=== PATIENT | female | born 1950 | race Caucasian/White ===

== ENCOUNTER → 2017-02-14 | Outpatient (CLI) | payer MEDICARE ==
--- NOTE | 2017-02-14 15:32 | XR ---
EXAMINATION TYPE: XR lumbosacral spine min 4V DATE OF EXAM: 02/14/2017 CLINICAL HISTORY: Chronic low back pain TECHNIQUE: Frontal, lateral, and oblique images of the lumbar spine are obtained. COMPARISON: None FINDINGS: There are 5 lumbar type vertebral bodies identified. There is grade 1 anterolisthesis of L 4 on L5. No pars interarticularis defects are seen at this level, therefore this is likely degenerati ve in nature. Intervertebral disc space narrowing is present at L2-L3 with associated endplate sclero sis. Mild facet arthropathy is present at L4-L5 and L5-S1. No radiographic evidence of neuroforaminal narrowing. There is a rotatory dextroscoliotic curvature of the lumbar spine. Transitional vertebrae seen on the right at L5. Vertebral body heights are maintained. The oblique images appear within nor mal limits. The overlying soft tissue appears unremarkable. IMPRESSION: 1. No acute fracture or dislocation is seen in the lumbar spine. 2. Grade 1 anterolisthesis of L4 on L5 without pars interarticularis defects, likely degenerative. 3. Mild multilevel degenerative disc disease most pronounced at L2-L3 and L5-S1 with no radiographic evidence of neuroforaminal stenosis. 4. Rotatory dextroscoliotic curvature of the lumbar spine.
== END ==
LOC: RADXRYALE 14:52
PROVIDERS: ATTEND Physician Assistant Medical
DX: M43.16 Spondylolisthesis, lumbar region (principal); M51.17 Intervertebral disc disorders with radiculopathy, lumbosacral region
CPT/HCPCS: 72110

== ENCOUNTER → 2017-02-22 | Outpatient (CLI) | payer MEDICARE ==
--- NOTE | 2017-02-25 06:52 | MM ---
Reason for exam: screening (asymptomatic). Last mammogram was performed 1 year ago. History: Patient is postmenopausal. Family history of breast cancer in sister at age 68. Stereotactic core biopsy, January 02, 2002. Physical Findings: A clinical breast exam by your physician is recommended on an annual basis and results should be correlated with mammographic findings. MG 3D Screening Mammo W/Cad Bilateral CC and MLO view(s) were taken. Prior study comparison: February 22, 2016, bilateral MG 3d screening mammo w/cad. January 19, 2015, bilateral MG screening mammo w CAD. There are scattered fibroglandular densities. No suspicious abnormality. ASSESSMENT: Negative, BI-RAD 1 RECOMMENDATION: Routine screening mammogram of both breasts in 1 year.
== END | disposition home or self-care (01) ==
LOC: RADMAMWWP 10:02
PROVIDERS: ATTEND Family Medicine
DX: Z12.31 Encounter for screening mammogram for malignant neoplasm of breast (principal)
CPT/HCPCS: 77063; G0202

== ENCOUNTER → 2017-03-26 | Outpatient (CLI) | payer MEDICARE ==
--- NOTE | 2017-03-26 09:34 | MR ---
EXAMINATION TYPE: MR lumbar spine wo con DATE OF EXAM: 03/26/2017 COMPARISON: Radiographs 02/14/2017 HISTORY: 66-year-old female with lumbago, back pain, and right-sided sciatica. TECHNIQUE: Multiplanar, multisequence images of the lumbar spine were acquired. FINDINGS: Vertebral body heights are preserved. Moderate multilevel degenerative disc disease characterized by a variable disc desiccation, disc spac e narrowing, a bulging discs. The greatest degree of disc height loss is present at L1-L2 and L2-L3 with vacuum phenomenon. Additional hypertrophic facet arthropathy throughout especially the mid to lower lumbar spine with li gamentum flavum thickening. There is a component of mild congenital spinal canal stenosis in the mid to lower lumbar spine. In th e mid lumbar spine, AP canal dimension is 1.2 cm and in the lower lumbar spine is 1. One centimeters. There is a grade 1 anterolisthesis at L4-L5. Conus medullaris is normal. Fatty filum incidentally noted. Mild heterogeneity of marrow signal without suspicious bone marrow replacement. At T12-L1, mild disc bulge without canal or foraminal stenosis. At L1-L2, mild diffuse disc bulge with facet arthropathy. There is attenuation of the thecal sac with out significant spinal canal stenosis. Minimal bilateral inferior neuroforaminal narrowing. At L2-L3, there is large diffuse disc bulge is severely crowds the cauda equina nerve roots causing a moderate to severe spinal canal stenosis. Minimal inferior left neuroforaminal narrowing. At L3-L4, there is diffuse disc bulge with congenital canal narrowing, hypertrophic facet arthropathy , ligamentum flavum thickening. There is overall mild spinal canal stenosis with minimal inferior for aminal narrowing on both sides. At L4-L5, there is congenital canal narrowing with hypertrophic facet arthropathy, ligamentum flavum thickening, grade 1 anterolisthesis, and bulging disc. Changes result in a severe spinal canal stenos is with mild right neuroforaminal stenosis. At L5-S1, facet arthropathy and epidural lipomatosis attenuating the thecal sac. No significant neuro foraminal stenosis. Parapelvic cyst suggested in the left kidney. No prevertebral or paravertebral soft tissue abnormalit y seen. IMPRESSION: 1. Moderate degenerative disc disease, greatest in the upper lumbar spine. Additional hypertrophic fa cet arthropathy and ligamentum flavum thickening with a degenerative grade 1 anterolisthesis of L4-L5 . 2. Underlying congenital spinal canal narrowing along with epidural lipomatosis at L5-S1 and below. 3. At L4-L5, change result in a severe spinal canal stenosis. 4. At L2-L3, changes because a moderate to severe spinal canal stenosis markedly crowding of the caud a equina nerve roots. 5. Mild overall spinal canal stenosis at L3-L4.
== END | disposition home or self-care (01) ==
LOC: RADMRIMAIN 07:38
PROVIDERS: ATTEND Physician Assistant Medical
DX: M48.06 Spinal stenosis, lumbar region (principal); M43.16 Spondylolisthesis, lumbar region; M51.36 Other intervertebral disc degeneration, lumbar region; M46.96 Unspecified inflammatory spondylopathy, lumbar region; E88.2 Lipomatosis, not elsewhere classified; Q76.49 Other congenital malformations of spine, not associated with scoliosis
CPT/HCPCS: 72148

== ENCOUNTER → 2018-02-24 | Outpatient (CLI) | payer MEDICARE ==
--- NOTE | 2018-02-26 10:18 | MM ---
Reason for exam: screening (asymptomatic). Last mammogram was performed 1 year ago. History: Patient is postmenopausal. Family history of breast cancer in sister at age 68. Stereotactic core biopsy, January 02, 2002. Physical Findings: A clinical breast exam by your physician is recommended on an annual basis and results should be correlated with mammographic findings. MG 3D Screening Mammo W/Cad Bilateral CC and MLO view(s) were taken. Prior study comparison: February 22, 2017, bilateral MG 3d screening mammo w/cad. February 22, 2016, bilateral MG 3d screening mammo w/cad. There are scattered fibroglandular densities. No significant changes when compared with prior studies. ASSESSMENT: Negative, BI-RAD 1 RECOMMENDATION: Routine screening mammogram of both breasts in 1 year.
== END | disposition home or self-care (01) ==
LOC: RADMAMWWP 12:37
PROVIDERS: ATTEND Family Medicine
DX: Z12.31 Encounter for screening mammogram for malignant neoplasm of breast (principal)
CPT/HCPCS: 77063; 77067

== ENCOUNTER → 2019-03-10 | Outpatient (CLI) | payer MEDICARE ==
--- NOTE | 2019-03-12 09:32 | MM ---
Reason for exam: screening (asymptomatic). Last mammogram was performed 1 year ago. History: Patient is postmenopausal. Family history of breast cancer in sister at age 68. Stereotactic core biopsy, January 02, 2002. Physical Findings: A clinical breast exam by your physician is recommended on an annual basis and results should be correlated with mammographic findings. MG 3D Screening Mammo W/Cad Bilateral CC and MLO view(s) were taken. Prior study comparison: February 24, 2018, bilateral MG 3d screening mammo w/cad. February 22, 2017, bilateral MG 3d screening mammo w/cad. There are scattered fibroglandular densities. No significant changes when compared with prior studies. ASSESSMENT: Negative, BI-RAD 1 RECOMMENDATION: Routine screening mammogram of both breasts in 1 year.
== END ==
LOC: RADMAMWWP 13:41
PROVIDERS: ATTEND Family Medicine
DX: Z12.31 Encounter for screening mammogram for malignant neoplasm of breast (principal)
CPT/HCPCS: 77063; 77067

== ENCOUNTER → 2020-01-11 | Outpatient (CLI) | payer MEDICARE ==
[2020-01-11 17:59] LABS: African American GFR (CKD) >90 (>60 ml/min/1.73 sqM); Blood Urea Nitrogen 25 mg/dL (7-17); Non-African American GFR(CKD) 81 (>60 ml/min/1.73 sqM)
--- NOTE | 2020-01-11 21:44 | CT ---
EXAMINATION TYPE: CT angio chest DATE OF EXAM: 01/11/2020 COMPARISON: NONE at this institution. HISTORY: aneurysm CT DLP: 363.8 mGycm. Automated Exposure Control for Dose Reduction was Utilized. CONTRAST: CTA scan of the thorax is performed with IV Contrast, patient injected with 100 mL of Isovue 370, pul monary embolism protocol. Three-D reconstructed images are created on independent workstation and rev iewed. FINDINGS: LUNGS: Mild to moderate dependent linear atelectasis both lower lungs right greater than left. Ther e is no pleural effusion or pneumothorax seen bilaterally. The tracheobronchial tree is patent. MEDIASTINUM: There is satisfactory enhancement of the central pulmonary artery and its branches. Asce nding aorta measures up to 4.1 cm in diameter axial image 25. No extension into arch or descending ao rta. 4 vessel origin from aortic arch which is normal variant. There are no greater than 1 cm noncalc ified hilar or mediastinal lymph nodes. Prominent but calcified right paratracheal and right hilar al catalino with subcarinal lymph nodes are seen. No cardiomegaly or pericardial effusion is seen. There is 2.2 cm heterogeneous low dense lower pole right thyroid nodule coronal image 42. OTHER: Visualized liver is low dense suggesting fatty infiltration. Scattered punctate calculations t hroughout the spleen. Spleen and calcified thoracic lymph nodes findings consistent with product of o ld granulomatous disease. Slight scoliotic curvature with straightening of the thoracic spine and mil d to moderate multilevel anterior and lateral spurring. IMPRESSION: 1. There is 4.1 cm ascending aortic aneurysm. 2. There is 2.2 cm lower pole right thyroid nodule. If this is not known finding follow-up thyroid ul trasound is advised to better evaluate and characterize.
== END | disposition home or self-care (01) ==
LOC: RADCTMAIN 17:21
PROVIDERS: ATTEND Internal Medicine Cardiovascular Disease
DX: I71.2 Thoracic aortic aneurysm, without rupture (principal); E04.1 Nontoxic single thyroid nodule; Z88.6 Allergy status to analgesic agent
CPT/HCPCS: 82565; 84520; 71275; 36415; Q9967

== ENCOUNTER → 2020-05-10 | Outpatient (CLI) | payer MEDICARE ==
--- NOTE | 2020-05-11 13:57 | MM ---
Reason for exam: screening (asymptomatic). Last mammogram was performed 1 year and 2 months ago. History: Patient is postmenopausal. Family history of breast cancer in sister at age 68. Stereotactic core biopsy, January 02, 2002. Physical Findings: A clinical breast exam by your physician is recommended on an annual basis and results should be correlated with mammographic findings. MG 3D Screening Mammo W/Cad Bilateral CC and MLO view(s) were taken. Prior study comparison: March 10, 2019, bilateral MG 3d screening mammo w/cad. February 24, 2018, bilateral MG 3d screening mammo w/cad. There are scattered fibroglandular densities. Lateral posterior asymmetric density left CC view is more defined. Densities at a middle depth just anteriorly are slightly more defined as well. ASSESSMENT: Incomplete: need additional imaging evaluation, BI-RAD 0 RECOMMENDATION: Special view mammogram of the left breast. (3D) If lesion persists on supplemental views, image directed ultrasound is recommended. [facility] will attempt to contact patient to return for supplemental views and ultrasound if indicated.
--- NOTE | 2020-05-12 05:48 | BD ---
EXAMINATION TYPE: Axial Bone Density DATE OF EXAM: 05/10/2020 COMPARISON: 05/09/2001 CLINICAL HISTORY: Postmenopausal screening Height: 4 FT 11 3/4 IN Weight: 178 FRAX RISK QUESTIONS: Alcohol (3 or more units per day): NO Family History (Parent hip fracture): NO Glucocorticoids (More than 3mos): NO (Ex: prednisone, prednisolone, methylprednisolone, dexamethasone, and hydrocortisone). History of Fracture in Adulthood: NO Secondary Osteoporosis: 1. Type 1 Diabetes: NO 2. Hyperthyroidism: NO 3. Menopause before 45: NO 4. Malnutrition: NO 5. Chronic liver disease: NO Rheumatoid Arthritis: NO Current Tobacco Use: NO RISK FACTORS HISTORY OF: Family History of Osteoporosis: NO Active: YES Diet low in dairy products/other sources of calcium: NO Postmenopausal woman: AGE 50 Take estrogen and/or progesterone medications: NONE Lost more than 2 inches in height since high school: NO MEDICATIONS: Thyroid Medications: YES Which medication: LEVOTHYROXINE How Long: SEVERAL YEARS Additional Medications: BLOOD PRESSURE ,CHOLESTEROL MEDS, HEART MEDS , LEVOTHYROXINE, AMBIEN Additional History: EXAM MEASUREMENTS: Bone mineral densitometry was performed using the [employer] System. Bone mineral density as measured about the Lumbar spine is: ----- L1-L4(G/cm2): 1.262 T Score Values are as follows: ----- L2: 0.9 ----- L3: 0.9 ----- L4: 1.0 ----- L1-L4: 0.7 Bone mineral density has: INCREASED 10.3 % since study of: 2000 Bone mineral density about the R hip (g/cm2): 0.870 Bone mineral density about the L hip (g/cm2): 0.806 T Score values are as follows: -----R Neck: -1.2 -----L Neck: -1.7 -----R Total: -0.7 -----L Total: -0.6 Bone mineral density has: DECREASED -7.8 % since study of: 2000 IMPRESSION: Osteopenia (T Score between -2.5 and -1). There is slightly increased risk of fracture and the patient may be considered for treatment. Re-Screen 2-5 years. NOTE: T-SCORE=SD OF THE YOUNG ADULT MEAN.
== END | disposition home or self-care (01) ==
LOC: RADMAMWWP 15:52
PROVIDERS: ATTEND Family Medicine
DX: Z12.31 Encounter for screening mammogram for malignant neoplasm of breast (principal); M85.88 Other specified disorders of bone density and structure, other site
CPT/HCPCS: 77063; 77067; 77080

== ENCOUNTER → 2020-05-13 | Outpatient (CLI) | payer MEDICARE ==
--- NOTE | 2020-05-13 11:29 | MM ---
Reason for exam: additional evaluation requested from abnormal screening. Last mammogram was performed less than 1 month ago. History: Patient is postmenopausal. Family history of breast cancer in sister at age 68. Stereotactic core biopsy, January 02, 2002. Physical Findings: Nurse did not find any significant physical abnormalities on exam. MG 3D Work Up W/Cad LT Spot compression CC, spot compression MLO, and ML view(s) were taken of the left breast. Prior study comparison: May 10, 2020, bilateral MG 3d screening mammo w/cad. March 10, 2019, bilateral MG 3d screening mammo w/cad. There are scattered fibroglandular densities. Subtle 5mm circumscribed nodularity 2 o'clock middle depth. The areas improve with spot compression. These results were verbally communicated with the patient and result sheet given to the patient on 05/13/20. ASSESSMENT: Incomplete: need additional imaging evaluation, BI-RAD 0 RECOMMENDATION: Ultrasound of the left breast. (2:00)
--- NOTE | 2020-05-13 11:33 | USB ---
Reason for exam: additional evaluation requested from abnormal screening. History: Patient is postmenopausal. Family history of breast cancer in sister at age 68. Stereotactic core biopsy, January 02, 2002. US Breast Workup Limited LT Left limited breast ultrasound including focal area of concern, retroareolar and axilla demonstrates a 0.5 x 0.4 x 0.4cm oval, cystic lesion at 2 o'clock. Scanned 12-3 o'clock. Precautionary 6 month follow up mammogram recommended. Ductal ectasia noted. These results were verbally communicated with the patient and result sheet given to the patient on 05/13/20. ASSESSMENT: Probably benign, BI-RAD 3 RECOMMENDATION: Follow-up diagnostic mammogram of the left breast in 6 months.
== END | disposition home or self-care (01) ==
LOC: RADMAMWWP 09:43
PROVIDERS: ATTEND Family Medicine
DX: R92.8 Other abnormal and inconclusive findings on diagnostic imaging of breast (principal)
CPT/HCPCS: 77065; 76642; G0279; 77061

== ENCOUNTER → 2020-11-24 | Outpatient (CLI) | payer MEDICARE ==
--- NOTE | 2020-11-24 12:19 | MM ---
Reason for exam: follow-up at short interval from prior study. Last mammogram was performed 6 months ago. History: Patient is postmenopausal. Family history of breast cancer in sister at age 68. Stereotactic core biopsy, January 02, 2002. Physical Findings: Nurse did not find any significant physical abnormalities on exam. MG 3D Diag Mammo W/Cad LT CC and MLO view(s) were taken of the left breast. Prior study comparison: May 13, 2020, left breast MG 3d work up w/cad LT. May 10, 2020, bilateral MG 3d screening mammo w/cad. The breast tissue is heterogeneously dense. This may lower the sensitivity of mammography. Stable nodularity left upper outer quadrant most likely benign asymmetry/overlap breast tissue. These results were verbally communicated with the patient and result sheet given to the patient on 11/24/20. ASSESSMENT: Probably benign, BI-RAD 3 RECOMMENDATION: Follow-up diagnostic mammogram of both breasts in 6 months. Back on schedule.
== END | disposition home or self-care (01) ==
LOC: RADMAMWWP 10:58
PROVIDERS: ATTEND Family Medicine
DX: N63.21 Unspecified lump in the left breast, upper outer quadrant (principal); Z78.0 Asymptomatic menopausal state; Z80.3 Family history of malignant neoplasm of breast
CPT/HCPCS: 77065; G0279; 77061

== ENCOUNTER → 2021-01-20 | Outpatient (CLI) | payer MEDICARE ==
--- NOTE | 2021-01-20 17:13 | XR ---
EXAMINATION TYPE: XR knee complete LT DATE OF EXAM: 01/20/2021 COMPARISON: None HISTORY: Left knee pain TECHNIQUE: 3 view left knee FINDINGS: Small joint effusion may be present. Joint space along the medial compartment may be narrow ed. Remaining joint spaces are preserved. No acute fractures or dislocations are evident. IMPRESSION: 1. Suggestion of a small joint effusion. MRI could further evaluate this finding. 2. Mild degenerative changes medial compartment left knee.
== END | disposition home or self-care (01) ==
LOC: RADXRYALE 11:18
PROVIDERS: ATTEND Family Medicine
DX: M17.12 Unilateral primary osteoarthritis, left knee (principal)

== ENCOUNTER → 2021-06-07 | Outpatient (CLI) | payer MEDICARE ==
--- NOTE | 2021-06-08 10:18 | MM ---
Reason for exam: follow-up at short interval from prior study. Last mammogram was performed 6 months ago. History: Patient is postmenopausal. Family history of breast cancer in sister at age 68. Physical Findings: Nurse did not find any significant physical abnormalities on exam. MG 3D Diag Mammo W/Cad JOSIE Bilateral CC and MLO view(s) were taken. Prior study comparison: November 24, 2020, left breast MG 3d diag mammo w/cad LT. May 13, 2020, left breast MG 3d work up w/cad LT. There are scattered fibroglandular densities. No significant new findings when compared with previous films. These results were verbally communicated with the patient and result sheet given to the patient on 06/07/21. ASSESSMENT: Benign, BI-RAD 2 RECOMMENDATION: Routine screening mammogram of both breasts in 1 year.
== END | disposition home or self-care (01) ==
LOC: RADMAMWWP 14:06
PROVIDERS: ATTEND Family Medicine
DX: R92.8 Other abnormal and inconclusive findings on diagnostic imaging of breast (principal); Z80.3 Family history of malignant neoplasm of breast; Z78.0 Asymptomatic menopausal state
CPT/HCPCS: 77066; G0279; 77062

== ENCOUNTER → 2021-06-15 | Day surgery (SDC) | payer MEDICARE ==
[~2021-06-15] MED LIST: LIDOCAINE 1% INJ 10MG/ML (20 ML MDV) ONE; LIDOCAINE 1% INJ 10MG/ML (20 ML MDV) SQ ONE; MIDAZOLAM 2 MG/2 ML VIAL IV ONE; SODIUM CHLORIDE 0.9% 1,000 ML IV SCH
[2021-06-15 10:28] VITALS: RESP 18; TEMP 98.1
[2021-06-15 13:56] VITALS: BP 134/63; PULSE 68
--- NOTE | 2021-06-15 18:28 | P.EPPROC ---
- EP Procedure Note Electrophysiology Procedure Note: Loop monitor implant Primary physicians: Software Engineer Mobile: Dr. Villa Indication: Recurrent atrial tachycardia, rule out atrial fibrillation Patient was brought to the EP lab in a fasting state. Written informed consent was obtained prior to the procedure. The left pectoral area was prepped and draped per protocol. Intravenous antibiotic was administered preoperatively. A subcutaneous Loop monitor was implanted successfully and the wound was closed per protocol. The device was programmed to detect significant mirna- arrhythmic and tachy-arrhythmic events, per protocol. Device and programming details: A. fib detection protocol Patient underwent EP procedure under conscious sedation/moderate sedation, monitoring of the level of consciousness and physiologic parameters including but not limited to vital signs and oxygenation. Patient tolerated the procedure well without any acute complications. Start time: 1212 Stop time: 1220
== END ==
LOC: CATHEP 09:47
PROVIDERS: ATTEND Internal Medicine Clinical Cardiac Electrophysiology
DX: I47.1 Supraventricular tachycardia (principal); R55 Syncope and collapse; I77.819 Aortic ectasia, unspecified site; I49.5 Sick sinus syndrome; I10 Essential (primary) hypertension; Z20.822 Contact with and (suspected) exposure to COVID-19; E03.9 Hypothyroidism, unspecified; I50.1 Left ventricular failure, unspecified; I71.2 Thoracic aortic aneurysm, without rupture; E78.5 Hyperlipidemia, unspecified; Z82.49 Family history of ischemic heart disease and other diseases of the circulatory system; Z79.890 Hormone replacement therapy; Z79.82 Long term (current) use of aspirin; Z79.899 Other long term (current) drug therapy; Z88.6 Allergy status to analgesic agent; Z88.5 Allergy status to narcotic agent
CPT/HCPCS: 33285; 87635; C1764; J2250; J0690; J2001

== ENCOUNTER → 2022-06-08 | Outpatient (CLI) | payer MEDICARE ==
--- NOTE | 2022-06-11 08:20 | MM ---
Reason for Exam: Screening (asymptomatic). Last screening mammogram was performed 12 month(s) ago. Patient History: Menarche at age 11. First Full-Term at age 17. Postmenopausal. Sister had breast cancer, age 68. Risk Values: Elizabeth 5 year model risk: 3.6%. NCI Lifetime model risk: 9.6%. Prior Study Comparison: 05/13/2020 Left Diagnostic Mammogram, [facility]. 11/24/2020 Left Diagnostic Mammogram, [facility]. 06/07/2021 Bilateral Diagnostic Mammogram, [facility]. Tissue Density: The breast tissue is heterogeneously dense. This may lower the sensitivity of mammography. Findings: Analyzed By CAD. There is no suspicious group of microcalcifications or new suspicious mass in either breast. Overall Assessment: Benign, BI-RAD 2 Management: Screening Mammogram of both breasts in 1 year. A clinical breast exam by your physician is recommended on an annual basis and results should be correlated with mammographic findings. Electronically signed and approved by: Ulysses Portillo M.D. Radiologis
== END | disposition home or self-care (01) ==
LOC: RADMAMWWP 15:00
PROVIDERS: ATTEND Family Medicine
DX: Z12.31 Encounter for screening mammogram for malignant neoplasm of breast (principal); Z78.0 Asymptomatic menopausal state; Z80.3 Family history of malignant neoplasm of breast
CPT/HCPCS: 77063; 77067

== ENCOUNTER → 2023-06-10 | Outpatient (CLI) | payer MEDICARE ==
--- NOTE | 2023-06-11 16:42 | MM ---
Reason for Exam: Screening (asymptomatic). Last screening mammogram was performed 12 month(s) ago. Patient History: Menarche at age 11. First Full-Term at age 17. Postmenopausal. Sister had breast cancer, age 68. Risk Values: Elizabeth 5 year model risk: 3.6%. NCI Lifetime model risk: 9.2%. Prior Study Comparison: 11/24/2020 Left Diagnostic Mammogram, [facility]. 06/07/2021 Bilateral Diagnostic Mammogram, [facility]. 06/08/2022 Bilateral MG 3D screening mammo w/cad, [facility]. Tissue Density: There are scattered fibroglandular densities. Findings: Analyzed By CAD. Pattern appears symmetrical and stable. Benign vascular calcifications within the left breast. Electronic device is within the left breast. No suspicious groups of microcalcifications, spiculated or lobular masses, architectural distortion or other secondary signs of malignancy are mammographically apparent. Overall Assessment: Benign, BI-RAD 2 Management: Screening Mammogram of both breasts in 1 year. A negative mammogram report should not preclude additional follow up of suspicious palpable abnormalities. Patient should continue monthly self breast exam. A clinical breast exam by your physician is recommended on an annual basis and results should be correlated with mammographic findings. Electronically signed and approved by: Ruslan Kohler D.O. Radiologis
== END | disposition home or self-care (01) ==
LOC: RADMAMWWP 10:52
PROVIDERS: ATTEND Family Medicine
DX: Z12.31 Encounter for screening mammogram for malignant neoplasm of breast (principal); Z78.0 Asymptomatic menopausal state; Z80.3 Family history of malignant neoplasm of breast
CPT/HCPCS: 77063; 77067

== ENCOUNTER 2023-12-28 17:29 | Observation (INO) | payer MEDICARE ==
--- NOTE | 2023-12-28 18:11 | ED ---
General Adult HPI - General Chief complaint: Arrhythmia/Palpitations Stated complaint: poss heart problems Time Seen by Provider: 12/28/23 17:40 Source: patient Mode of arrival: ambulatory Limitations: no limitations - History of Present Illness Initial comments: Dictation was produced using [employer] dictation software. please excuse any grammatical, word or spelling errors. Chief Complaint: 73-year-old female presents emergency department for chest pr essure palpitations History of Present Illness: Patient is a 73-year-old female states that she has a pressure in her chest. She denies that it feels like pain. She has no known history of coronary artery disease. Patient has history of leaky valve, ascending aneurysm. She has an implanted loop recorder. 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 Patient states that feels like a vibration in her chest. Not associate with diaphoresis or nausea. Patient states she has had a catheter for with no known history of coronary artery disease. The ROS documented in this emergency department record has been reviewed and confirmed by me. Those systems with pertinent positive or negative responses have been documented in the HPI. All other systems are other negative and/or noncontributory. - Related Data Home Medications Medication Instructions Recorded Confirmed Aspirin 81 mg PO DAILY 06/15/21 06/15/21 Atorvastatin [Lipitor] 40 mg PO DAILY 06/15/21 06/15/21 Fenofibrate Nanocrystallized 145 mg PO DAILY 06/15/21 06/15/21 [Fenofibrate] Ibandronate Sodium [Boniva] 150 mg PO QMONTHLY 06/15/21 06/15/21 Latanoprost/Pf [Latanoprost 0.005% 1 drop BOTH EYES HS 06/15/21 06/15/21 Eye Drop] Levothyroxine Sodium [Levo-T] 50 mcg PO DAILY 06/15/21 06/15/21 Valsartan/Hydrochlorothiazide 1 each PO DAILY 06/15/21 06/15/21 [Valsartan-Hctz 160-12.5 mg Tab] Zolpidem [Ambien] 5 mg PO HS PRN 06/15/21 06/15/21 amLODIPine [Norvasc] 5 mg PO DAILY 06/15/21 06/15/21 Allergies Allergy/AdvReac Type Severity Reaction Status Date / Time acetaminophen AdvReac Unknown Verified 12/28/23 17:39 [From Darvocet-N] propoxyphene AdvReac Unknown Verified 12/28/23 17:39 [From Darvocet-N] Review of Systems ROS Statement: Those systems with pertinent positive or pertinent negative responses have been documented in the HPI. ROS Other: All systems not noted in ROS Statement are negative. Past Medical History Past Medical History: Hypertension, Thyroid Disorder Additional Past Medical History / Comment(s): Ascending Aneurysm. Leaking valve History of Any Multi-Drug Resistant Organisms: None Reported Past Surgical History: No Surgical Hx Reported Past Psychological History: No Psychological Hx Reported Smoking Status: Never smoker Past Alcohol Use History: None Reported Past Drug Use History: None Reported General Exam - General Exam Comments Initial Comments: PHYSICAL EXAM: General Impression: Alert and oriented x3, not in acute distress HEENT: Normocephalic atraumatic, extra-ocular movements intact, pupils equal and reactive to light bilaterally, mucous membranes moist. Cardiovascular: Heart regular rate and rhythm Chest: Able to complete full sentences, no retractions, no tachypnea Abdomen: abdomen soft, non-tender, non-distended, no organomegaly Musculoskeletal: Pulses present and equal in all extremities, no peripheral edema Motor: no focal deficits noted Neurological: CN II-XII grossly intact, no focal motor or sensory deficits noted Skin: Intact with no visualized rashes Psych: Normal affect and mood Limitations: no limitations Course Vital Signs 12/28/23 12/28/23 17:34 18:38 Temperature 98.2 F Pulse Rate 67 60 Respiratory 20 17 Rate Blood Pressure 129/77 127/77 O2 Sat by Pulse 97 98 Oximetry EKG Findings - EKG Comments: EKG Findings:: My EKG interpretation: Ventricular rate 65, sinus rhythm,. 174, cures 96, QTc 431. No LA prolongation, no QTC prolongation, no ST or T-wave changes noted. Overall, this EKG is unremarkable Medical Decision Making - Medical Decision Making Was pt. sent in by a medical professional or institution (, PA, BRAND LEAD, urgent care, hospital, or custodial...) When possible be specific @ -No Did you speak to anyone other than the patient for history (EMS, parent, family, police, friend...)? What history was obtained from this source @ -No Did you review nursing and triage notes (agree or disagree)? Why? @ -I reviewed and agree with nursing and triage notes Were old charts reviewed (outside hosp., previous admission, EMS record, old EKG, old radiological studies, urgent care reports/EKG's, custodial records)? Report findings @ -No old charts were reviewed Differential Diagnosis (chest pain, altered mental status, abdominal pain women, abdominal pain men, vaginal bleeding, musculoskeletal, weakness, fever, dyspnea, syncope, headache, dizziness, GI bleed, back pain, seizure, CVA, palpatations, mental health)? @ -Differential Chest Pain: Stable Angina, Unstable Angina, STEMI, NSTEMI Aortic Dissection, Pneumothorax, Musculoskeletal, Esophageal Spasm GERD, Cholecystitis, Pancreatitis, Zoster, this is not meant to be an all-inclusive list. EKG interpreted by me (3pts min.). @ -See above X-rays interpreted by me (1pt min.). @ -X-ray shows no acute processes CT interpreted by me (1pt min.). @ -None done U/S interpreted by me (1pt. min.). @ -None done What testing was considered but not performed or refused? (CT, X-rays, U/S, l abs)? Why? @ -None What meds were considered but not given or refused? Why? @ -None Was smoking cessation discussed for >3mins.? @ -No Were there social determinants of health that impacted care today? How? (Homelessness, low income, unemployed, alcoholism, drug addiction, transportation, low edu. Level, literacy, decrease access to med. care, correction, rehab)? @ -No Was there de-escalation of care discussed even if they declined (Discuss DNR or withdrawal of care, Hospice)? DNR status @ -No What co-morbidities impacted this encounter? (DM, HTN, Smoking, COPD, CAD, Cancer, CVA, ARF, Chemo, Hep., AIDS, mental health diagnosis, sleep apnea, morbid obesity)? @ -None Was patient admitted / discharged? Hospital course, mention meds given and route, prescriptions, significant lab abnormalities, going to OR and other pertinent info. @ -73-year-old female presents emergency department with chest pressure and palpitations. Vital signs upon arrival are within acceptable limits. Patient denies any symptoms at the bedside. Laboratory evaluation obtained. CBC, coag panel metabolic panel is unremarkable. Troponin is negative. Patient is high risk. She has moderate heart score. Patient will be admitted to observation with consultation cardiology. Patient given aspirin. Did you discuss the management of the patient with other professionals (professionals i.e. , PA, BRAND LEAD, lab, RT, psych nurse, social security specialist, production expert, teacher, immigration services officer, immigration case worker)? Give summary @ -Discussed with hospitalist for admission Was critical care preformed (if so, how long)? @ -No Undiagnosed new problem with uncertain prognosis? @ -No Drug Therapy requiring intensive monitoring for toxicity (Heparin, Nitro, Insulin, Cardizem)? @ -No Were any procedures done? @ -No Diagnosis/symptom? Acute, or Chronic, or Acute on Chronic? Uncomplicated (without systemic symptoms) or Complicated (systemic symptoms)? @ -Chest pain Side effects of treatment? @ -No Exacerbation, Progression, or Severe Exacerbation? @ -No Poses a threat to life or bodily function? How? (Chest pain, [place], [place], pneumonia, PE, COPD, DKA, ARF, appy, cholecystitis, CVA, Diverticulitis, Homicidal, Suicidal, threat to staff... and all critical care pts) @ -Yes - Lab Data Result diagrams: 12/28/23 18:21 12/28/23 18:21 Lab Results 12/28/23 12/28/23 12/28/23 Range/Units 18:21 18:21 18:21 WBC 7.1 (3.8-10.6) k/uL RBC 4.32 (3.80-5.40) m/uL Hgb 13.2 (11.4-16.0) gm/dL Hct 39.1 (34.0-46.0) % MCV 90.5 (80.0-100.0) fL MCH 30.6 (25.0-35.0) pg MCHC 33.8 (31.0-37.0) g/dL RDW 12.8 (11.5-15.5) % Plt Count 204 (150-450) k/uL MPV 8.6 Neutrophils % 66 % Lymphocytes % 21 % Monocytes % 8 % Eosinophils % 3 % Basophils % 1 % Neutrophils # 4.7 (1.3-7.7) k/uL Lymphocytes # 1.5 (1.0-4.8) k/uL Monocytes # 0.6 (0-1.0) k/uL Eosinophils # 0.2 (0-0.7) k/uL Basophils # 0.1 (0-0.2) k/uL PT 11.8 (10.0-12.5) sec INR 1.1 (<1.2) APTT 22.4 (22.0-30.0) sec Sodium 139 (137-145) mmol/L Potassium 3.5 (3.5-5.1) mmol/L Chloride 107 (98-107) mmol/L Carbon Dioxide 24 (22-30) mmol/L Anion Gap 8 mmol/L BUN 19 H (7-17) mg/dL Creatinine 0.79 (0.52-1.04) mg/dL Est GFR (CKD-EPI)AfAm 87 (>60 ml/min/1.73 sqM) Est GFR (CKD-EPI)NonAf 75 (>60 ml/min/1.73 sqM) Glucose 112 H (74-99) mg/dL Calcium 9.5 (8.4-10.2) mg/dL Magnesium 1.6 (1.6-2.3) mg/dL Total Bilirubin 0.4 (0.2-1.3) mg/dL AST 28 (14-36) U/L ALT 20 (4-34) U/L Alkaline Phosphatase 53 (38-126) U/L Troponin I (0.000-0.034) ng/mL Total Protein 6.5 (6.3-8.2) g/dL Albumin 3.9 (3.5-5.0) g/dL TSH 2.660 (0.465-4.680) mIU/L 12/28/23 Range/Units 18:21 WBC (3.8-10.6) k/uL RBC (3.80-5.40) m/uL Hgb (11.4-16.0) gm/dL Hct (34.0-46.0) % MCV (80.0-100.0) fL MCH (25.0-35.0) pg MCHC (31.0-37.0) g/dL RDW (11.5-15.5) % Plt Count (150-450) k/uL MPV Neutrophils % % Lymphocytes % % Monocytes % % Eosinophils % % Basophils % % Neutrophils # (1.3-7.7) k/uL Lymphocytes # (1.0-4.8) k/uL Monocytes # (0-1.0) k/uL Eosinophils # (0-0.7) k/uL Basophils # (0-0.2) k/uL PT (10.0-12.5) sec INR (<1.2) APTT (22.0-30.0) sec Sodium (137-145) mmol/L Potassium (3.5-5.1) mmol/L Chloride (98-107) mmol/L Carbon Dioxide (22-30) mmol/L Anion Gap mmol/L BUN (7-17) mg/dL Creatinine (0.52-1.04) mg/dL Est GFR (CKD-EPI)AfAm (>60 ml/min/1.73 sqM) Est GFR (CKD-EPI)NonAf (>60 ml/min/1.73 sqM) Glucose (74-99) mg/dL Calcium (8.4-10.2) mg/dL Magnesium (1.6-2.3) mg/dL Total Bilirubin (0.2-1.3) mg/dL AST (14-36) U/L ALT (4-34) U/L Alkaline Phosphatase (38-126) U/L Troponin I <0.012 (0.000-0.034) ng/mL Total Protein (6.3-8.2) g/dL Albumin (3.5-5.0) g/dL TSH (0.465-4.680) mIU/L Disposition Clinical Impression: Chest pain Disposition: ADMITTED IP TO THIS [facility] Condition: Fair Referrals: Rogelio Valentin DO [Primary Care Provider] - 1-2 days Decision Time: 19:22
[2023-12-28 18:31] LABS: Basophils # (A) 0.1 k/uL (0-0.2); Basophils % (A) 1 %; Eosinophils # (A) 0.2 k/uL (0-0.7); Eosinophils % (A) 3 %; HCT 39.1 % (34.0-46.0); HGB 13.2 gm/dL (11.4-16.0); Lymphocytes # (A) 1.5 k/uL (1.0-4.8); Lymphocytes % (A) 21 %; MCH 30.6 pg (25.0-35.0); MCHC 33.8 g/dL (31.0-37.0); MCV 90.5 fL (80.0-100.0); Mean Platelet Volume 8.6; Monocytes # (A) 0.6 k/uL (0-1.0); Monocytes % (A) 8 %; Neutrophils # (A) 4.7 k/uL (1.3-7.7); Neutrophils % (A) 66 %; Platelet Count 204 k/uL (150-450); RBC 4.32 m/uL (3.80-5.40); RDW 12.8 % (11.5-15.5); WBC 7.1 k/uL (3.8-10.6)
[2023-12-28 18:44] LABS: ALT 20 U/L (4-34); AST 28 U/L (14-36); African American GFR (CKD) 87 (>60 ml/min/1.73 sqM); Albumin 3.9 g/dL (3.5-5.0); Alkaline Phosphatase 53 U/L (38-126); Anion Gap 8 mmol/L; Blood Urea Nitrogen 19 mg/dL (7-17); Calcium 9.5 mg/dL (8.4-10.2); Carbon Dioxide 24 mmol/L (22-30); Chloride 107 mmol/L (98-107); Glucose 112 mg/dL (74-99); Magnesium 1.6 mg/dL (1.6-2.3); Non-African American GFR(CKD) 75 (>60 ml/min/1.73 sqM); Potassium 3.5 mmol/L (3.5-5.1); Sodium 139 mmol/L (137-145); Total Bilirubin 0.4 mg/dL (0.2-1.3); Total Protein 6.5 g/dL (6.3-8.2)
--- NOTE | 2023-12-28 18:56 | XR ---
EXAMINATION TYPE: XR chest 2V DATE OF EXAM: 12/28/2023 COMPARISON: None HISTORY: 73-year-old female dysrhythmia TECHNIQUE: AP and lateral views FINDINGS: Loop recorder device projecting over the left side of the chest. Heart upper limits of normal in size . Mild elongation/tortuosity of the thoracic aorta. Pulmonary vasculature within normal limits. No co nsolidation or pleural effusion. IMPRESSION: Borderline heart size. No acute process seen. Loop recorder device anterior chest wall.
[2023-12-28 19:00] LABS: INR 1.1 (<1.2); Partial Thromboplastin Time 22.4 sec (22.0-30.0); Prothrombin Time 11.8 sec (10.0-12.5)
[2023-12-28] MEDS ORDERED: NITROGLYCERIN SL TABS 0.4 MG TAB SUBLINGUAL PRN (19:20)
[2023-12-28] MEDS: ASPIRIN 81 MG PO STA (19:31)
[2023-12-28] MEDS: ZOLPIDEM 5 MG TAB PO PRN (23:06)
[2023-12-29] MEDS: LEVOTHYROXINE 75 MCG TAB PO SCH (05:42)
[2023-12-29] MEDS: VALSARTAN 160 MG TAB PO SCH (08:24)
[2023-12-29] MEDS: hydroCHLOROthiazide 12.5 MG CAP PO SCH (08:25)
[2023-12-29] MEDS: ASPIRIN 81 MG PO SCH (08:25)
[2023-12-29] MEDS: FAMOTIDINE 20 MG/2 ML VIAL IV SCH (08:25)
[2023-12-29] MEDS: HEPARIN SODIUM,PORCINE 5,000 UNIT/ML 1 ML VIAL SQ SCH (08:25)
[2023-12-29] MEDS ORDERED: ASPIRIN 325 MG TAB PO SCH (09:00)
[2023-12-29] MEDS ORDERED: FAMOTIDINE 20 MG/2 ML VIAL IV SCH (09:00)
[2023-12-29 10:55] LABS: Chol/HDL Ratio 2.85 Ratio; LDL Cholesterol,Calculated 63.2 mg/dL (0.0-131.0)
--- NOTE | 2023-12-29 11:16 | P.HPIM ---
History of Present Illness H&P Date: 12/29/23 I assumed care of this patient at 8 AM this morning. 73 year old F with PMH of hypothyroidism, hypertension, dyslipidemia, glaucoma, h/o "leaky valve" and Loop recorder following Dr. Villa presents to the ED. is at bedside. Patient reports 2 episodes of chest tightness associated with palpitations and diaphoresis that happened yesterday around 10 AM and 4 PM. Both episodes occurred at rest and lasted between 15-30 minutes, self resolving. She denies any lightheadedness or shortness of breath. Denies smoking or alcohol use. Drinks 1.5 cups of coffee daily. Recent adjustment of her thyroid medication by her PCP. This prompted her to come to the ED. In the ED she underwent extensive evaluation. BP 129/77, HR 67, RR 20, 97% on RA. CBC, Coag panel, CMP performed significant for BUN 19, glu 112. Mag 1.6. Troponin < 0.012 x 3 with EKG showing sinus bradycardia with rate of [address]-T wave changes. TSH 2.66. Lipid panel T. Chol 127, LDL 63.2. CXR negative for acute pathology. Patient is admitted for palpitations, chest pain and Cardiology evaluation. General: no distress, appears at stated age Derm: warm, dry Head: atraumatic, normocephalic, symmetric Eyes: EOMI, no lid lag, anicteric sclera Mouth: no lip lesion, mucus membranes moist Cardiovascular: S1S2 mirna, no murmur Lungs: CTA BS bilateral, no rhonchi, no rales , no accessory muscle use Abdominal: non-distended, non tender to palpation Ext: no gross muscle atrophy, no edema, no contractures Neuro: no focal neuro deficits Psych: Alert and oriented x 3 Chest pain with palpitations: Troponins trended, ACS ruled out. Telemetry monitoring. Recent Echo done at [facility]. Consult Cardiology. Sinus bradycardia: Avoid AV seun blockers. Hypothyroidism: Synthroid 75 mcg PO QD. Hypertension: Amlodipine 5 mg PO QD. Valsartan-HCTZ 160-12.5 mg PO QD. HLD: Fenofibrate 145 mg PO QHS. Lipitor 40 mg PO QHS. Glaucoma: Latanoprost eye drops QHS. CODE STATUS: FULL CODE DVT Prophylaxis: Heparin SQ GI Prophylaxis: Designated medical POA if patient is not able to make medical decisions for themselves: I have reviewed the following sec reporting consultant notes: ED note. I have reviewed the results of the following tests: As above. I have ordered the following tests: As above. I have discussed the care of this patient with the following independent historian: . I have independently interpreted the following test below: EKG. I have discussed the management of this patient with the following physician: Past Medical History Past Medical History: Hypertension, Thyroid Disorder Additional Past Medical History / Comment(s): Ascending Aneurysm. Leaking valve. loop recorder. glaucoma bilateral History of Any Multi-Drug Resistant Organisms: None Reported Past Surgical History: Tubal Ligation Additional Past Surgical History / Comment(s): right ft tendon sx Past Anesthesia/Blood Transfusion Reactions: No Reported Reaction Past Psychological History: Anxiety Smoking Status: Never smoker Past Alcohol Use History: None Reported Additional Drug Use History / Comment(s): THC gummies at night to sleep - Past Family History Mother Family Medical History: Hypertension Additional Family Medical History / Comment(s): colon cancer. at age 84 Father Family Medical History: CVA/TIA Additional Family Medical History / Comment(s): etoh. at age 54 Medications and Allergies Home Medications Medication Instructions Recorded Confirmed Type Aspirin 81 mg PO HS 06/15/21 12/28/23 History Atorvastatin [Lipitor] 40 mg PO HS 06/15/21 12/28/23 History Fenofibrate Nanocrystallized 145 mg PO HS 06/15/21 12/28/23 History [Fenofibrate] Latanoprost/Pf [Latanoprost 0.005% 1 drop BOTH EYES HS 06/15/21 12/28/23 History Eye Drop] Valsartan/Hydrochlorothiazide 1 tab PO BID 06/15/21 12/28/23 History [Valsartan-Hctz 160-12.5 mg Tab] Zolpidem [Ambien] 5 mg PO HS PRN 06/15/21 12/28/23 History Levothyroxine Sodium [Synthroid] 75 mcg PO DAILY 12/28/23 12/28/23 History Nitroglycerin Sl Tabs [Nitrostat] 0.4 mg SL Q5M PRN 12/28/23 12/28/23 History Semaglutide [Rybelsus] 7 mg PO DAILY 12/28/23 12/28/23 History amLODIPine [Norvasc] 5 mg PO DAILY@1600 12/28/23 12/28/23 History Allergies Allergy/AdvReac Type Severity Reaction Status Date / Time acetaminophen AdvReac Unknown Verified 12/28/23 19:45 [From Darvocet-N] propoxyphene AdvReac Unknown Verified 12/28/23 19:45 [From Darvocet-N] Physical Exam Vitals: Vital Signs Temp Pulse Pulse Resp BP BP Pulse Ox 12/29/23 07:10 98.1 F 54 L 15 137/75 95 12/29/23 02:00 98.2 F 55 L 19 129/76 97 12/28/23 20:00 97.9 F 59 L 18 131/76 97 12/28/23 19:55 60 16 96 12/28/23 19:38 96 12/28/23 19:23 61 18 120/79 12/28/23 18:38 60 17 127/77 98 12/28/23 17:34 98.2 F 67 20 129/77 97 Intake and Output 12/28/23 12/29/23 12/29/23 22:59 06:59 14:59 Intake Total 118 Balance 118 Intake: Oral 118 Other: # Voids 2 2 Weight 68.039 kg Results CBC & Chem 7: 12/28/23 18:21 12/28/23 18:21 Labs: Abnormal Lab Results - Last 24 Hours (Table) 12/28/23 Range/Units 18:21 BUN 19 H (7-17) mg/dL Glucose 112 H (74-99) mg/dL Thrombosis Risk Factor Assmnt - Choose All That Apply Any of the Below Risk Factors Present?: Yes Each Factor Represents 1 point: Obesity (BMI >25) Other Risk Factors: Yes Each Risk Factor Represents 2 Points: Age 61-74 years Other congenital or acquired thrombophilia - If yes, enter type in comment: No Thrombosis Risk Factor Assessment Total Risk Factor Score: 3 Thrombosis Risk Factor Assessment Level: Moderate Risk
--- NOTE | 2023-12-29 12:38 | P.CRDCN ---
History of Present Illness Consult date: 12/29/23 Consult reason: chest pain History of present illness: This is a 73-year-old female patient of Dr. Villa with past medical history of paroxysmal atrial tachycardia, dilated ascending aorta, hypertension, possible sick sinus syndrome, hypothyroidism. We have been asked to evaluate the patient for chest pain. Patient presented to the hospital due to tightness in her chest along with heart fluttering. Patient states that yesterday she developed a tightness in her chest as well as her heart was fluttering and it seemed to go on for quite a while so she decided to come into the emergency center. By the time she arrived in the ER, she still had some tightness but the fluttering had stopped. Eventually the tightness also went away in about 1/2-hour. She was given 4 aspirin. She did not receive nitroglycerin. She did check her blood pressure at home and states it was fine but did not check her pulse. She states she has similar episodes about every few months. She denies any new medications. She has been started on Rybelsus and lost 20 pounds. Patient's states that a couple days ago she was complaining of her heart pounding and checked her blood pressure and it was okay. Blood pressure 137/75, heart rate 54, pulse ox 95% on room air EKG: Sinus rhythm with no acute ST-T wave changes. Chest x-ray: Borderline heart size. No acute process. Loop recorder device. Laboratory studies: WBC 7.1, hemoglobin 13.2. Sodium 139, potassium 3.5, BUN 19 and creatinine 0.79. Troponins negative x 3. TSH 2.66. Magnesium 1.6. Home cardiac medications: Amlodipine 5 mg at 1600, aspirin 81 mg at bedtime, atorvastatin 40 mg at bedtime, fenofibrate 145 mg at bedtime, nitroglycerin sublingual as needed, valsartan/hydrochlorothiazide 160-12.5 mg 1 tablet twice daily, also on levothyroxine 75 mcg daily. Cardiac catheterization performed 10/06/2020 revealed normal coronaries, LVEDP normal. This was performed in [place]. Echocardiogram performed in the office on 11/15/2021 revealed EF 55 to 60%, mild LVH, ascending aorta 4.2 cm, RVSP 45 mmHg. eVestment loop recorder placed 06/15/2021. Device interrogation performed in the office on 11/13/2023 showed no episodes of tachycardia or bradycardia. Ambulatory electrocardiogram 12/20/2019 one 24-hour Holter revealed 3 runs of nonsustained atrial tachycardia with RVR up to 141 bpm Lexiscan Cardiolite stress test performed in the office on 06/06/2020 revealed a negative Lexiscan stress test. Normal perfusion study. Normal gated studies. Review Of Systems: At the time of my exam: CONSTITUTIONAL: Denies fever or chills. HEENT: Denies blurred vision, vision changes, or eye pain. Denies hemoptysis CARDIOVASCULAR: Denies chest pain. Denies orthopnea. Denies PND. Denies palp itations RESPIRATORY: Denies shortness of breath. GASTROINTESTINAL: Denies abdominal pain. Denies nausea or vomiting. HEMATOLOGIC: Denies bleeding disorders. GENITOURINARY: Denies any blood in urine. SKIN: Denies puritis. Denies rash. Physical examination: Gen: This is a 73-year-old female in no acute distress VS: reviewed HEENT: Head is atraumatic, normocephalic. Pupils equal, round. Sclerae is anicteric. NECK: Supple. No JVD. LUNGS: Clear to auscultation. No wheezes or rhonchi. No intercostal retractions. HEART: Regular rate and rhythm. Systolic murmur. ABDOMEN: Soft No tenderness. EXTREMITIES: No pedal edema. No calf tenderness. NEUROLOGICAL: Patient is awake, alert and oriented x3. Assessment: Atypical chest pain, acute coronary syndrome ruled out with negative troponins Paroxysmal atrial tachycardia, possible episode of this yesterday but was not captured on EKG/telemetry Dilated ascending aorta 4.2 cm Hypertension Hypothyroidism Plan: Resume patient's home cardiac medications Interrogate loop recorder If nothing significant found on loop recorder, patient is cleared for discharge and may follow-up with Dr. Villa in 1 week. Thank you kindly for this consultation. Nurse practitioner note has been reviewed, I agree with documented findings and plan of care. Patient was seen and examined. Past Medical History Past Medical History: Hypertension, Thyroid Disorder Additional Past Medical History / Comment(s): Ascending Aneurysm. Leaking valve. loop recorder. glaucoma bilateral History of Any Multi-Drug Resistant Organisms: None Reported Past Surgical History: Tubal Ligation Additional Past Surgical History / Comment(s): right ft tendon sx Past Anesthesia/Blood Transfusion Reactions: No Reported Reaction Past Psychological History: Anxiety Smoking Status: Never smoker Past Alcohol Use History: None Reported Additional Drug Use History / Comment(s): THC gummies at night to sleep - Past Family History Mother Family Medical History: Hypertension Additional Family Medical History / Comment(s): colon cancer. at age 84 Father Family Medical History: CVA/TIA Additional Family Medical History / Comment(s): etoh. at age 54 Medications and Allergies Home Medications Medication Instructions Recorded Confirmed Type Aspirin 81 mg PO HS 06/15/21 12/28/23 History Atorvastatin [Lipitor] 40 mg PO HS 06/15/21 12/28/23 History Fenofibrate Nanocrystallized 145 mg PO HS 06/15/21 12/28/23 History [Fenofibrate] Latanoprost/Pf [Latanoprost 0.005% 1 drop BOTH EYES HS 06/15/21 12/28/23 History Eye Drop] Valsartan/Hydrochlorothiazide 1 tab PO BID 06/15/21 12/28/23 History [Valsartan-Hctz 160-12.5 mg Tab] Zolpidem [Ambien] 5 mg PO HS PRN 06/15/21 12/28/23 History Levothyroxine Sodium [Synthroid] 75 mcg PO DAILY 12/28/23 12/28/23 History Nitroglycerin Sl Tabs [Nitrostat] 0.4 mg SL Q5M PRN 12/28/23 12/28/23 History Semaglutide [Rybelsus] 7 mg PO DAILY 12/28/23 12/28/23 History amLODIPine [Norvasc] 5 mg PO DAILY@1600 12/28/23 12/28/23 History Allergies Allergy/AdvReac Type Severity Reaction Status Date / Time acetaminophen AdvReac Unknown Verified 12/28/23 19:45 [From Darvocet-N] propoxyphene AdvReac Unknown Verified 12/28/23 19:45 [From Darvocet-N] Physical Exam Vitals: Vital Signs Temp Pulse Pulse Resp BP BP Pulse Ox 12/29/23 07:10 98.1 F 54 L 15 137/75 95 12/29/23 02:00 98.2 F 55 L 19 129/76 97 06/29/24 20:00 97.9 F 59 L 18 131/76 97 12/28/23 19:55 60 16 96 12/28/23 19:38 96 12/28/23 19:23 61 18 120/79 12/28/23 18:38 60 17 127/77 98 12/28/23 17:34 98.2 F 67 20 129/77 97 Intake and Output 12/28/23 12/29/23 12/29/23 22:59 06:59 14:59 Other: # Voids 2 2 Weight 68.039 kg Results 12/28/23 18:21 12/28/23 18:21 Cardiac Enzymes 12/28/23 12/28/23 12/28/23 Range/Units 18:21 18:21 21:41 AST 28 (14-36) U/L Troponin I <0.012 <0.012 (0.000-0.034) ng/mL 12/29/23 Range/Units 00:26 AST (14-36) U/L Troponin I <0.012 (0.000-0.034) ng/mL Coagulation 12/28/23 Range/Units 18:21 PT 11.8 (10.0-12.5) sec APTT 22.4 (22.0-30.0) sec CBC 12/28/23 Range/Units 18:21 WBC 7.1 (3.8-10.6) k/uL RBC 4.32 (3.80-5.40) m/uL Hgb 13.2 (11.4-16.0) gm/dL Hct 39.1 (34.0-46.0) % Plt Count 204 (150-450) k/uL Comprehensive Metabolic Panel 12/28/23 Range/Units 18:21 Sodium 139 (137-145) mmol/L Potassium 3.5 (3.5-5.1) mmol/L Chloride 107 (98-107) mmol/L Carbon Dioxide 24 (22-30) mmol/L BUN 19 H (7-17) mg/dL Creatinine 0.79 (0.52-1.04) mg/dL Glucose 112 H (74-99) mg/dL Calcium 9.5 (8.4-10.2) mg/dL AST 28 (14-36) U/L ALT 20 (4-34) U/L Alkaline Phosphatase 53 (38-126) U/L Total Protein 6.5 (6.3-8.2) g/dL Albumin 3.9 (3.5-5.0) g/dL Current Medications Generic Name Dose Route Start Last Admin Trade Name Freq PRN Reason Stop Dose Admin Amlodipine Besylate 5 mg 12/29/23 16:00 Amlodipine 5 Mg Tab PO DAILY@1600 [facility] Aspirin 325 mg 12/29/23 09:00 Aspirin 325 Mg Tab PO DAILY [facility]1983 Atorvastatin Calcium 40 mg 12/29/23 21:00 Atorvastatin 40 Mg Tab PO HS [facility]1983 Famotidine 20 mg 12/29/23 09:00 Famotidine 20 Mg/2 Ml Vial IV DAILY [facility], [facility]1983 Fenofibrate 160 mg 12/29/23 21:00 Fenofibrate 160 Mg Tab PO HS [facility], [facility]1983 Heparin Sodium (Porcine) 5,000 unit 12/29/23 09:00 Heparin Sodium,Porcine 5,000 Unit/Ml 1 Ml Vial SQ Q12HR [facility], [facility]1983 Hydrochlorothiazide 12.5 mg 12/29/23 09:00 Hydrochlorothiazide 12.5 Mg Cap PO BID [facility]1983 Latanoprost 1 drops 12/29/23 21:00 Latanoprost 0.005% Ophth Drops 2.5 Ml Btl BOTH EYES HS [facility]1983 Levothyroxine Sodium 75 mcg 12/29/23 06:30 12/29/23 05:42 Levothyroxine 75 Mcg Tab PO 75 mcg DAILY@0630 GLEN Administration Nitroglycerin 0.4 mg 12/28/23 19:20 Nitroglycerin Sl Tabs 0.4 Mg Tab SUBLINGUAL Q5M PRN Chest Pain Valsartan 160 mg 12/29/23 09:00 Valsartan 160 Mg Tab PO BID [facility] Zolpidem Tartrate 5 mg 12/28/23 21:05 12/28/23 23:06 Zolpidem 5 Mg Tab PO 5 mg HS PRN Administration Insomnia Intake and Output 12/28/23 12/29/23 12/29/23 22:59 06:59 14:59 Other: # Voids 2 2 Weight 68.039 kg 12/28/23 18:21 12/28/23 18:21
[2023-12-29 14:26] VITALS: BP 123/73; PULSE 62; RESP 16; TEMP 98.5
[2023-12-29] MEDS: amLODIPine 5 MG TAB PO SCH (15:31)
[2023-12-29] MEDS ORDERED: ATORVASTATIN 40 MG TAB PO SCH (21:00)
[2023-12-29] MEDS ORDERED: FENOFIBRATE 160 MG TAB PO SCH (21:00)
[2023-12-29] MEDS ORDERED: LATANOPROST 0.005% OPHTH DROPS 2.5 ML BTL BOTH EYES SCH (21:00)
--- NOTE | 2023-12-30 13:30 | P.DS ---
Providers Date of admission: 12/28/23 19:21 Expected date of discharge: 12/30/23 Attending physician: Theo Villasenor MD Consults: 12/28/23 19:20 Consult Physician Urgent Consulting Provider: Usman Gonzalez Consult Reason/Comments: chest pain Do you want consulting provider notified?: Yes Primary care physician: [facility] Course: I assumed care of this patient at 8 AM this morning. 73 year old F with PMH of hypothyroidism, hypertension, dyslipidemia, glaucoma, h/o "leaky valve" and Loop recorder following Dr. Villa presents to the ED. is at bedside. Patient reports 2 episodes of chest tightness associated with palpitations and diaphoresis that happened yesterday around 10 AM and 4 PM. Both episodes occurred at rest and lasted between 15-30 minutes, self resolving. She denies any lightheadedness or shortness of breath. Denies smoking or alcohol use. Drinks 1.5 cups of coffee daily. Recent adjustment of her thyroid medication by her PCP. This prompted her to come to the ED. In the ED she underwent extensive evaluation. BP 129/77, HR 67, RR 20, 97% on RA. CBC, Coag panel, CMP performed significant for BUN 19, glu 112. Mag 1.6. Troponin < 0.012 x 3 with EKG showing sinus bradycardia with rate of [address]-T wave changes. TSH 2.66. Lipid panel T. Chol 127, LDL 63.2. CXR negative for acute pathology. Patient is admitted for palpitations, chest pain and Cardiology evaluation. Troponins trended and ACS ruled out. Cardiology consulted, recommended loop recorder interrogation which revealed no significant findings. Discussed with RN, cardiology had cleared the patient for discharge home with outpatient Dr. Villa follow up. General: no distress, appears at stated age Derm: warm, dry Head: atraumatic, normocephalic, symmetric Eyes: EOMI, no lid lag, anicteric sclera Mouth: no lip lesion, mucus membranes moist Cardiovascular: S1S2 mirna, no murmur Lungs: CTA BS bilateral, no rhonchi, no rales , no accessory muscle use Abdominal: non-distended, non tender to palpation Ext: no gross muscle atrophy, no edema, no contractures Neuro: no focal neuro deficits Psych: Alert and oriented x 3 Discharge Diagnosis: Chest pain with palpitations Sinus bradycardia Hypothyroidism Hypertension HLD Glaucoma This complex discharge took 35 minutes to complete. Patient Condition at Discharge: Stable Plan - Discharge Summary New Discharge Prescriptions: Continue Zolpidem [Ambien] 5 mg PO HS PRN PRN Reason: Insomnia Latanoprost/Pf [Latanoprost 0.005% Eye Drop] 1 drop BOTH EYES HS Aspirin 81 mg PO HS Fenofibrate Nanocrystallized [Fenofibrate] 145 mg PO HS Nitroglycerin Sl Tabs [Nitrostat] 0.4 mg SL Q5M PRN PRN Reason: Chest Pain Atorvastatin [Lipitor] 40 mg PO HS Valsartan/Hydrochlorothiazide [Valsartan-Hctz 160-12.5 mg Tab] 1 tab PO BID Semaglutide [Rybelsus] 7 mg PO DAILY Levothyroxine Sodium [Synthroid] 75 mcg PO DAILY amLODIPine [Norvasc] 5 mg PO DAILY@1600 Discharge Medication List Aspirin 81 mg PO HS 06/15/21 [History] Atorvastatin [Lipitor] 40 mg PO HS 06/15/21 [History] Fenofibrate Nanocrystallized [Fenofibrate] 145 mg PO HS 06/15/21 [History] Latanoprost/Pf [Latanoprost 0.005% Eye Drop] 1 drop BOTH EYES HS 06/15/21 [History] Valsartan/Hydrochlorothiazide [Valsartan-Hctz 160-12.5 mg Tab] 1 tab PO BID 06/15/21 [History] Zolpidem [Ambien] 5 mg PO HS PRN 06/15/21 [History] Levothyroxine Sodium [Synthroid] 75 mcg PO DAILY 12/28/23 [History] Nitroglycerin Sl Tabs [Nitrostat] 0.4 mg SL Q5M PRN 12/28/23 [History] Semaglutide [Rybelsus] 7 mg PO DAILY 12/28/23 [History] amLODIPine [Norvasc] 5 mg PO DAILY@1600 12/28/23 [History] Follow up Appointment(s)/Referral(s): William Villa MD [STAFF PHYSICIAN] - 1 Week Rogelio Valentin DO [Primary Care Provider] - 1-2 days Discharge Disposition: HOME SELF-CARE
== END 2023-12-29 15:50 | disposition home or self-care (01) ==
LOC: EC 17:29 → 6NMEDSUR 19:21
PROVIDERS: ADMIT Family Medicine; ATTEND Family Medicine
DX: R00.2 Palpitations (principal); E03.9 Hypothyroidism, unspecified; I10 Essential (primary) hypertension; Z82.49 Family history of ischemic heart disease and other diseases of the circulatory system; H40.9 Unspecified glaucoma; E78.5 Hyperlipidemia, unspecified; R00.1 Bradycardia, unspecified; Z80.0 Family history of malignant neoplasm of digestive organs; Z79.899 Other long term (current) drug therapy; Z79.890 Hormone replacement therapy; Z79.82 Long term (current) use of aspirin
CPT/HCPCS: 96374; 96372; 99285; 36415; 93005; 80061; 80053; 83735; 84443; 84484 ×2; 85025; 85610; 85730; 71046; G0378 ×2; J1644; J3490

== ENCOUNTER → 2024-06-11 | Outpatient (CLI) | payer MEDICARE ==
--- NOTE | 2024-06-13 23:42 | MM ---
Reason for Exam: Screening (asymptomatic). Last screening mammogram was performed 12 month(s) ago. Patient History: Menarche at age 11. First Full-Term at age 17. Postmenopausal. Sister had breast cancer, age 68. Risk Values: Elizabeth 5 year model risk: 3.6%. NCI Lifetime model risk: 8.7%. Prior Study Comparison: 02/22/2017 Bilateral Screening Mammogram, [facility]. 02/24/2018 Bilateral Screening Mammogram, [facility]. 03/10/2019 Bilateral Screening Mammogram, [facility]. 05/10/2020 Bilateral Screening Mammogram, [facility]. 05/13/2020 Left Diagnostic Mammogram, [facility]. 11/24/2020 Left Diagnostic Mammogram, [facility]. 06/07/2021 Bilateral Diagnostic Mammogram, [facility]. 06/08/2022 Bilateral MG 3D screening mammo w/cad, [facility]. 06/10/2023 Bilateral MG 3D screening mammo w/cad, [facility]. Tissue Density: There are scattered areas of fibroglandular density. Findings: Analyzed By CAD. The pattern is symmetrical. Loop recorder is within the [id number] on the craniocaudal projection. Graft there is an asymmetric density in the upper outer left mid breast. Finding is changing over the interval. Circumscribed nodularity may be present on the tomographic image. Additional workup is recommended. Right Breast:No suspicious groups of microcalcifications, spiculated or lobular masses, architectural distortion or other secondary signs of malignancy are mammographically apparent. Overall Assessment: Incomplete: need additional imaging evaluation, BI-RAD 0 Management: Diagnostic Mammogram of the left breast. Diagnostic Breast Ultrasound of the left breast. A negative mammogram report should not preclude additional follow up of suspicious palpable abnormalities. Patient should continue monthly self breast exam. A clinical breast exam by your physician is recommended on an annual basis and results should be correlated with mammographic findings. Note on Elizabeth scores and lifetime risk: 1. A Elizabeth score greater than 3% is considered moderate risk. If this is the case, consider specialist referral to assess eligibility for a risk reducing agent. 2. If overall lifetime risk for the development of breast cancer is 20% or higher, the patient may qualify for future screening with alternating mammogram and breast MRI. [facility], , 06/13/2024 11:40 PM. Electronically signed and approved by: Ruslan Kohler D.O. Radiologis
== END | disposition home or self-care (01) ==
LOC: RADMAMWWP 11:12
PROVIDERS: ATTEND Family Medicine
DX: Z12.31 Encounter for screening mammogram for malignant neoplasm of breast (principal); Z78.0 Asymptomatic menopausal state; Z80.3 Family history of malignant neoplasm of breast; R92.323 Mammographic fibroglandular density, bilateral breasts
CPT/HCPCS: 77063; 77067

== ENCOUNTER → 2024-06-25 | Outpatient (CLI) | payer MEDICARE ==
--- NOTE | 2024-06-25 08:48 | MM ---
Reason for Exam: Additional evaluation requested from abnormal screening. Last screening mammogram was performed less than 1 month ago. Patient History: Menarche at age 11. First Full-Term at age 17. Postmenopausal. Sister had breast cancer, age 68. Risk Values: Elizabeth 5 year model risk: 3.6%. NCI Lifetime model risk: 8.7%. Prior Study Comparison: 06/08/2022 Bilateral MG 3D screening mammo w/cad, [facility]. 06/10/2023 Bilateral MG 3D screening mammo w/cad, [facility]. 06/11/2024 Bilateral MG 3D screening mammo w/cad, [facility]. Tissue Density: Left: There are scattered areas of fibroglandular density. Findings: Analyzed By CAD. The questioned lateral asymmetric density becomes less defined on spot review and has an appearance similar to prior exams. Findings compatible with superimposition shadow. Benign oil cyst calcifications noted. Overall Assessment: Benign, BI-RAD 2 Management: Screening Mammogram of both breasts in 1 year. See note below in regards to patient's increased 5 year Elizabeth score. Results were given to the patient verbally at the time of exam. Patient should continue monthly self-breast exams. A clinical breast exam by your physician is recommended on an annual basis. This exam should not preclude additional follow-up of suspicious palpable abnormalities. Note on Elizabeth scores and lifetime risk: 1. A Elizabeth score greater than 3% is considered moderate risk. If this is the case, consider specialist referral to assess eligibility for a risk reducing agent. 2. If overall lifetime risk for the development of breast cancer is 20% or higher, the patient may qualify for future screening with alternating mammogram and breast MRI. [facility], , 06/25/2024 8:45 AM. Electronically signed and approved by: Jony Ann M.D. Radiologist
== END | disposition home or self-care (01) ==
LOC: RADMAMWWP 08:22
PROVIDERS: ATTEND Family Medicine
DX: R92.8 Other abnormal and inconclusive findings on diagnostic imaging of breast (principal); Z78.0 Asymptomatic menopausal state; Z80.3 Family history of malignant neoplasm of breast; R92.322 Mammographic fibroglandular density, left breast
CPT/HCPCS: 77065; G0279; 77061